=== PATIENT | female | born 1975 | race Hispanic/Latino ===

== ENCOUNTER 2018-02-16 15:14 | Outpatient (CLI) | payer OTHER ==
--- NOTE | 2018-02-16 16:49 | MMO ---
BILATERAL SCREENING MAMMOGRAM: 02/16/18 HISTORY: 43-year-old female. Routine screening mammography. COMPARISON: None. TECHNIQUE: CC and MLO views of both breasts are submitted for interpretation. This patient's mammogram is review ed with the assistance of computer aided detection. FINDINGS: The breasts are composed of scattered fibroglandular tissue. No suspicious dominant mass, architectur al distortion, or suspicious calcification. Bilateral benign appearing calcification identified. IMPRESSION: BIRADS 2: Benign Finding(s) RECOMMENDATION: Routine annual screening mammography (for women over age 40). POS: [facility]
== END 2018-02-16 15:15 | disposition home or self-care (01) ==
LOC: SCSMAMMO 15:14
PROVIDERS: ATTEND Family Medicine
DX: Z12.31 Encounter for screening mammogram for malignant neoplasm of breast (principal)
CPT/HCPCS: 77067

== ENCOUNTER 2018-04-29 18:02 | Emergency (ER) | payer OTHER ==
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
== END 2018-04-29 19:30 | disposition home or self-care (01) ==
LOC: SCSER 18:02
DX: T23.021A Burn of unspecified degree of single right finger (nail) except thumb, initial encounter (principal); I10 Essential (primary) hypertension; W86.1XXA Exposure to industrial wiring, appliances and electrical machinery, initial encounter
CPT/HCPCS: 93005